=== PATIENT | male | born 2000 | race Caucasian/White ===

== ENCOUNTER 2021-08-24 22:14 | Emergency (ER) | payer BC ==
[~2021-08-24] VITALS: Ht 162.4 cm; Wt 90.7 kg
[2021-08-24] MEDS ORDERED: LACTATED RINGERS 1,000 ML IV ONE ×2 (22:24→22:40)
[2021-08-24] MEDS ORDERED: fentaNYL INJ 100 MCG/2 ML AMP ONE (22:24)
[2021-08-24] MEDS ORDERED: ceFAZolin INJECTION 0 MG ONE (22:31)
[2021-08-24] MEDS ORDERED: TETANUS & DIPHTHERIA TOX,ADULT 0.5 ML (TENIVAC) IM ONE (22:31)
[2021-08-24] MEDS ORDERED: NS (IVPB) 0 ML ONE (22:35)
[2021-08-24 22:39] LABS: HEMATOCRIT 45 % (40-54); HEMOGLOBIN 15.7 g/dL (13.3-17.7); MEAN CORPUSCULAR HEMOGLOBIN 28 pg (25-34); MEAN CORPUSCULAR HGB CONC 35 g/dL (32-36); MEAN CORPUSCULAR VOLUME 81 fL (80-99); MEAN PLATELET VOLUME 9.9 fL (9.0-12.2); PLATELET COUNT 430 10^3/uL (130-400); WHITE BLOOD COUNT 17.7 10^3/uL (4.3-11.0)
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
[2021-08-24 22:42] LABS: ALBUMIN 4.6 GM/DL (3.2-4.5); CHLORIDE 102 MMOL/L (98-107); POTASSIUM 3.4 MMOL/L (3.6-5.0); SODIUM 141 MMOL/L (135-145)
[2021-08-24 22:43] LABS: CALCIUM 9.8 MG/DL (8.5-10.1)
[2021-08-24 22:44] LABS: GLUCOSE 119 MG/DL (70-105)
[2021-08-24 22:45] LABS: CARBON DIOXIDE 18 MMOL/L (21-32)
[2021-08-24] MEDS ORDERED: TETANUS,DIPTH,PERTUSS P/F (BOOSTRIX) 0.5 ML VIAL IM ONE (22:45)
[2021-08-24] MEDS ORDERED: ceFAZolin INJECTION 1,000 MG VIAL IV ONE (22:45)
[2021-08-24] MEDS ORDERED: fentaNYL INJ 100 MCG/2 ML AMP IVP ONE ×3 (22:45→23:15)
[2021-08-24 22:46] LABS: BILIRUBIN,TOTAL 0.3 MG/DL (0.1-1.0)
[2021-08-24 22:48] LABS: ALKALINE PHOSPHATASE 94 U/L (40-136); CREATININE SERUM 1.09 MG/DL (0.60-1.30); GFR ESTIMATED 98
[2021-08-24 22:49] LABS: BUN/CREATININE RATIO 13
[2021-08-24 22:50] LABS: BILIRUBIN,DIRECT < 0.1 MG/DL (0.0-0.3); BILIRUBIN,INDIRECT 0.2 MG/DL
[2021-08-24 22:51] LABS: ALANINE AMINOTRANSFERASE 49 U/L (0-55)
[2021-08-24] MEDS ORDERED: ONDANSETRON 4 MG/2 ML (SDV) Z0FRAN ONE (22:54)
[2021-08-24] MEDS ORDERED: CEFEPIME INJECTION 1,000 MG in NS (IVPB) 50 ML IV ONE ×2 (23:00→23:45)
[2021-08-24] MEDS ORDERED: ONDANSETRON 4 MG/2 ML (SDV) Z0FRAN IVP ONE (23:00)
[2021-08-24] MEDS ORDERED: morphine INJ 10 MG/ML 1ML (SYR OR VIAL) IVP STA (23:48)
[2021-08-25 00:01] LABS: BILIRUBIN,URINE NEGATIVE (NEGATIVE); CLARITY,URINE CLEAR; COLOR,URINE YELLOW; GLUCOSE, URINE (UA) NEGATIVE (NEGATIVE); KETONES,URINE TRACE (NEGATIVE); LEUKOCYTE ESTERASE ,URINE NEGATIVE (NEGATIVE); NITRITE,URINE NEGATIVE (NEGATIVE); PH,URINE 6.5 (5-9); PROTEIN,URINE NEGATIVE (NEGATIVE)
[2021-08-25 00:16] LABS: BACTERIA,URINE NEGATIVE /HPF; SQUAMOUS EPITHELIAL CELL,UR 0-2 /HPF
[2021-08-25 00:20] LABS: AMPHETAMINE SCREEN, URINE NEGATIVE (NEGATIVE); BARBITURATE SCREEN URINE NEGATIVE (NEGATIVE); BENZODIAZEPINES SCREEN URINE NEGATIVE (NEGATIVE); CANNABINOID SCREEN, URINE NEGATIVE (NEGATIVE); COCAINE SCREEN URINE NEGATIVE (NEGATIVE); METHADONE STAT NEGATIVE (NEGATIVE); OPIATE SCREEN URINE NEGATIVE (NEGATIVE); OXYCODONE STAT NEGATIVE (NEGATIVE); PROPOXYPHENE STAT NEGATIVE (NEGATIVE); TRICYCLIC ANTIDEPRESSANTS SCRE NEGATIVE (NEGATIVE)
--- NOTE | 2021-08-25 00:28 | HISTORY AND PHYSICAL ---
DATE OF SERVICE: ADDENDUM ATTENDING PRIMARY CARE PHYSICIAN: Dr. Cortez. Upon further examination by CT scan, there appears to be a fracture at the level of either the temporal or parietal bone, which is displaced inward. There is also air within the cranium. Due to these findings, he will need to be transferred to a tertiary center with neurosurgical capabilities. Job ID: [id number] DocumentID: [id number] Dictated Date: 08/24/2021 22:53:37 Banking Specialist Date: 08/24/2021 23:00:50 Dictated By: OREN WHITMORE MD
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
[2021-08-25] MEDS ORDERED: IOHEXOL 350 MG/ML 100 ML (OMNIPAQUE 350) VIAL IV ONE (01:00)
[2021-08-25] MEDS ORDERED: NS 100 ML (IVPB) BAG IV ONE (01:00)
[2021-08-25] MEDS ORDERED: HOLD METFORMIN - RECEIVED CONTRAST 20 ML VIAL IV SCH (01:00)
[2021-08-25 01:07] VITALS: BP 132/87
--- NOTE | 2021-08-25 06:24 | Diagnostic Imaging Report ---
CLINICAL INDICATION: Patient status post trauma. EXAM: Portable chest x-ray upright view. COMPARISON: None. FINDINGS: Lungs/pleura: Lungs are clear. There is no pneumothorax. There is no pleural effusion. Mediastinum: Unremarkable. Pulmonary vasculature: Unremarkable. Heart: Unremarkable. Bones/extrathoracic soft tissue: Unremarkable. IMPRESSION: There is no radiographic evidence of acute cardiopulmonary process or traumatic finding. Dictated by: Dictated on workstation # [id number]
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
== END 2021-08-25 01:18 | disposition short-term general hospital (02) ==
LOC: EDUNIT# 22:14 → ER 22:15
DX: S02.0XXB Fracture of vault of skull, initial encounter for open fracture (principal); S02.19XB Other fracture of base of skull, initial encounter for open fracture; S06.0X9A Concussion with loss of consciousness of unspecified duration, initial encounter; R40.2250 Coma scale, best verbal response, oriented, unspecified time; R40.2140 Coma scale, eyes open, spontaneous, unspecified time; R40.2360 Coma scale, best motor response, obeys commands, unspecified time; Z23 Encounter for immunization; V86.59XA Driver of other special all-terrain or other off-road motor vehicle injured in nontraffic accident, initial encounter
CPT/HCPCS: 70450; 70486; 71045; 71260; 72125; 74177; 80048; 80076; 80306; 81000; 85027; 93041; 99291; G0390; G0480; 36415; 80320; 90715